=== PATIENT | female | born 1975 | race Hispanic/Latino ===

== ENCOUNTER 2016-09-03 15:48 | Emergency (ER) | payer MEDICAID ==
[2016-09-03 15:48] VITALS: BMI 21.4
[2016-09-03 16:08] VITALS: TEMP 98.4; O2SAT 99
[2016-09-03 16:17] VITALS: RESP 18
--- NOTE | 2016-09-03 17:09 | ED PDOC ---
Arrival/HPI - General Chief Complaint: Abdominal Pain Time Seen by Provider: 09/03/16 16:00 Historian: Patient - History of Present Illness Narrative History of Present Illness (Text): 09/03/16 17:04 40yo female with history of anxiety present with complaint of abdominal pain and constipation x 3weeks. States she used different OTC supplement without relieve. she reports previous history of constipation, states she usually have BM after using supplements. Denies nausea, vomiting, fever, chills, any other complaint. she denies drug use, opiod dependence. Past Medical History - Provider Review Nursing Documentation Reviewed: Yes - Past History Past History: No Previous - Infectious Disease Hx of Infectious Diseases: None - Tetanus Immunization Tetanus Immunization: Unknown - Reproductive Menopause: No - Past Medical History Past Medical History: No Previous - Cardiac Hx Cardiac Disorders: No Hx Hypertension: No - Pulmonary Hx Tuberculosis: No - Neurological HX Cerebrovascular Accident: No Hx Seizures: No - HEENT Hx HEENT Disorder: No (WEARSR X GLASSES) - Renal Hx Renal Disorder: No - Endocrine/Metabolic Hx Endocrine Disorders: No - Hematological/Oncological Hx Cancer: No - Integumentary Hx Dermatological Disorder: No - Musculoskeletal/Rheumatological Hx Musculoskeletal Disorders: No Hx Falls: No - Gastrointestinal Hx Gastrointestinal Disorders: Yes (CONSTIPATION,CHOLELITHIASIS,BILIARY COLIC) - Genitourinary/Gynecological Hx Sexually Transmitted Diseases: No - Psychiatric Hx Anxiety: Yes Hx Depression: No Hx Emotional Abuse: No Hx Physical Abuse: No Hx Substance Use: No - Past Surgical History Past Surgical History: No Previous - Surgical History Hx Cholecystectomy: Yes (september) Other/Comment: D&C x3 , demise - Anesthesia Hx Anesthesia Reactions: No Hx Malignant Hyperthermia: No - Suicidal Assessment Feels Threatened In Home Enviroment: No Family/Social History - Physician Review Nursing Documentation Reviewed: Yes Family/Social History: Unknown Family HX Smoking Status: Current Some Days Smoker Hx Alcohol Use: Yes (OCCASIONALLY) Hx Substance Use: No Hx Substance Use Treatment: No Allergies/Home Meds Allergies/Adverse Reactions: Allergies Iodine and Iodide Containing Produc Allergy (Verified 09/03/16 16:08) RASH Home Medications: Home Meds Medication Instructions Recorded Confirmed ALPRAZolam [Xanax] 1 mg PO QID 09/03/16 09/03/16 Review of Systems - Physician Review All systems were reviewed & negative as marked: Yes - Review of Systems Constitutional: Normal Eyes: Normal ENT: Normal Respiratory: Normal Cardiovascular: Normal Gastrointestinal: Abdominal Pain, Constipation. absent: Diarrhea, Nausea, Vomiting, Hematochezia, Hematemesis Genitourinary Female: Normal Musculoskeletal: Normal Skin: Normal Neurological: Normal Endocrine: Normal Hemo/Lymphatic: Normal Psychiatric: Normal Physical Exam Vital Signs Reviewed: Yes Vital Signs Temp Pulse Resp BP Pulse Ox 09/03/16 17:59 76 18 108/69 99 09/03/16 16:16 98.4 F 80 18 110/72 99 09/03/16 15:58 98.4 F 80 20 110/72 99 Temperature: Afebrile Blood Pressure: Normal Pulse: Regular Respiratory Rate: Normal Appearance: Positive for: Well-Appearing, Non-Toxic, Comfortable Pain Distress: None Mental Status: Positive for: Alert and Oriented X 3 - Systems Exam Head: Present: Atraumatic, Normocephalic Pupils: Present: PERRL Extroacular Muscles: Present: EOMI Conjunctiva: Present: Normal Mouth: Present: Moist Mucous Membranes Neck: Present: Normal Range of Motion Respiratory/Chest: Present: Clear to Auscultation, Good Air Exchange. No: Respiratory Distress, Accessory Muscle Use Cardiovascular: Present: Regular Rate and Rhythm, Normal S1, S2. No: Murmurs Abdomen: Present: Distention (Mildly distended), Normal Bowel Sounds. No: Tenderness, Peritoneal Signs, Rebound, Guarding, McBurney's Point Tender, Rovsing's Sign Present, Hernias Back: Present: Normal Inspection Upper Extremity: Present: Normal Inspection. No: Cyanosis, Edema Lower Extremity: Present: Normal Inspection. No: Edema Neurological: Present: GCS=15, CN II-XII Intact, Speech Normal Skin: Present: Warm, Dry, Normal Color. No: Rashes Psychiatric: Present: Alert, Oriented x 3, Normal Insight, Normal Concentration Medical Decision Making ED Course and Treatment: 09/03/16 19:08 Pt presented in ED for abdominal pain /constipation. Her exam was benign. she had abdominal pain, although mild distention was noted . abdomen was sot. Obstructive series - No obstruction. Fecal retention noted. Pt used the fleet enema that was given in ED. On re evaluation she states she was able to move her bowel s/p and feels much better. She was DC home with a rx of Miralax. Advised to increase her fiber intake. referred to her PMD. - RAD Interpretation Radiology Orders: 09/03/16 16:39 obstructive series [ABD 2 VIEWS (FLAT/UP OR DECUB)] [RAD] Stat - Medication Orders Current Medication Orders: Discontinued Medications Acetaminophen (Tylenol 325mg Tab) 650 mg PO STAT STA Stop: 09/03/16 18:19 Last Admin: 09/03/16 18:24 Dose: 650 MG MAR Pain/Vitals Document 09/03/16 18:24 RR (Rec: 09/03/16 18:25 RR [id number]) Pain Reassessment Is This A Pain ReAssessment? Yes Sleep Is patient sleeping during reassessment? No Presence of Pain Presence of Pain Yes Location Pain Location Body Site Abdomen Sodium Phosphate (Fleet Enema) 135 ml RC STAT STA Stop: 09/03/16 18:03 Last Admin: 09/03/16 18:19 Dose: 135 ML Disposition/Present on Arrival - Present on Arrival Any Indicators Present on Arrival: No History of DVT/PE: No History of Uncontrolled Diabetes: No Urinary Catheter: No History of Decub. Ulcer: No History Surgical Site Infection Following: None - Disposition Have Diagnosis and Disposition been Completed?: Yes Diagnosis: Constipation Disposition: HOME/ ROUTINE Disposition Time: 19:00 Patient Plan: Discharge Patient Problems: Current Active Problems Problem Status Diagnosed Constipation Acute Condition: STABLE Discharge Instructions (ExitCare): Constipation (ED) Additional Instructions: Increase fiber intake Follow up with your doctor Return to ED for any new or worsening symptoms Prescriptions: Polyethylene Glycol 3350 [Miralax] 17 % PO BID #100 ml Referrals: Dylan Fox MD [Primary Care Provider] - Follow up with primary
[2016-09-03 18:00] VITALS: BP 108/69; PULSE 76
--- NOTE | 2016-09-04 10:49 | RAD ---
HISTORY: constipation COMPARISON: No prior. FINDINGS: BOWEL: Normal. No obstruction. No free air. There is moderate to severe constipation BONES: Normal. OTHER FINDINGS: None. IMPRESSION: Moderate to severe constipation
== END 2016-09-03 19:10 | disposition home or self-care (01) ==
LOC: ED 15:48
DX: K59.00 Constipation, unspecified (principal)

== ENCOUNTER 2016-09-21 11:41 | Emergency (ER) | payer MEDICAID ==
[2016-09-21 12:01] VITALS: BMI 20.8
[2016-09-21 12:02] VITALS: TEMP 97.8; O2SAT 99
[2016-09-21] MEDS ORDERED: Pantoprazole 40 MG in Sodium Chloride 0.9% 100 ML IV STA (12:33)
[2016-09-21] MEDS ORDERED: Sodium Chloride 0.9% 500 ML IV ONE (12:34)
--- NOTE | 2016-09-21 12:37 | ED PDOC ---
Arrival/HPI - General Chief Complaint: Abdominal Pain Time Seen by Provider: 09/21/16 12:01 Historian: Patient - History of Present Illness Narrative History of Present Illness (Text): 09/21/16 12:34 A 40 year old female, whose past medical history includes cholecystectomy, presents to the emergency department complaining of epigastric abdominal pain for the past year. Patient reports her pain worsened over this pas month which caused her to come in for further evaluation. Patient denies any radiating pain , fever, chills, nausea, vomiting, diarrhea, urinary symptoms, back pain, chest pain, shortness of breath or any other complaints. Patient reports her last menstrual cycle was 2 years ago. PMD: None Time/Duration: Other (1 year) Symptom Course: Worsening (over past month) Quality: Other Context: Home Associated Symptoms (Text): 09/21/16 13:24 Patient has had epigastric abdominal pain for greater than 1 year. She's been seen by the PMD and directed to the tipple worker. She states that the pain is become worse over the last month or so. No nausea vomiting or diarrhea. No genitourinary symptoms. No radiation. She does not appear ill. She had a cholecystectomy 2 years ago. Past Medical History - Provider Review Nursing Documentation Reviewed: Yes - Past History Past History: No Previous - Infectious Disease Hx of Infectious Diseases: None - Tetanus Immunization Tetanus Immunization: Unknown - Past Medical History Past Medical History: No Previous - Cardiac Hx Cardiac Disorders: No Hx Hypertension: No - Pulmonary Hx Respiratory Disorders: No Hx Tuberculosis: No - Neurological HX Cerebrovascular Accident: No Hx Seizures: No - HEENT Hx HEENT Disorder: No (WEARSR X GLASSES) - Renal Hx Renal Disorder: No - Endocrine/Metabolic Hx Endocrine Disorders: No - Hematological/Oncological Hx Blood Disorders: No Hx Cancer: No - Integumentary Hx Dermatological Disorder: No - Musculoskeletal/Rheumatological Hx Musculoskeletal Disorders: No Hx Falls: No - Gastrointestinal Hx Gastrointestinal Disorders: Yes (CONSTIPATION,CHOLELITHIASIS,BILIARY COLIC) Hx Irritable Bowel: Yes - Genitourinary/Gynecological Hx Genitourinary Disorders: No Hx Sexually Transmitted Diseases: No - Psychiatric Hx Psychophysiologic Disorder: Yes Hx Anxiety: Yes Hx Depression: No Hx Emotional Abuse: No Hx Physical Abuse: No Hx Substance Use: No - Past Surgical History Past Surgical History: No Previous - Surgical History Hx Cholecystectomy: Yes (september) Other/Comment: D&C x3 , demise - Anesthesia Hx Anesthesia Reactions: No Hx Malignant Hyperthermia: No - Suicidal Assessment Feels Threatened In Home Enviroment: No Family/Social History - Physician Review Nursing Documentation Reviewed: Yes Family/Social History: No Known Family HX Smoking Status: Light Smoker < 10 Cigarettes Daily Hx Alcohol Use: Yes (OCCASIONALLY) Hx Substance Use: No Hx Substance Use Treatment: No Allergies/Home Meds Allergies/Adverse Reactions: Allergies Iodine and Iodide Containing Produc Allergy (Verified 09/21/16 12:01) RASH shellfish derived Allergy (Verified 09/21/16 12:02) ANAPHYLAXIS Home Medications: Home Meds Medication Instructions Recorded Confirmed ALPRAZolam [Xanax] 1 mg PO QID 09/03/16 09/21/16 Review of Systems - Physician Review All systems were reviewed & negative as marked: Yes - Review of Systems Constitutional: absent: Fevers, Night Sweats Respiratory: absent: SOB Cardiovascular: absent: Chest Pain Gastrointestinal: Abdominal Pain (Epigastric abdominal pain). absent: Diarrhea , Nausea, Vomiting Genitourinary Female: absent: Dysuria, Frequency, Hematuria, Urine Output Changes Musculoskeletal: absent: Back Pain Physical Exam Vital Signs Reviewed: Yes Vital Signs Temp Pulse Resp BP Pulse Ox 09/21/16 14:22 79 18 107/71 99 09/21/16 13:48 86 18 105/75 99 09/21/16 12:02 97.8 F 91 H 16 103/72 99 Temperature: Afebrile Blood Pressure: Normal Pulse: Regular Respiratory Rate: Normal Appearance: Positive for: Well-Appearing, Non-Toxic, Comfortable Pain Distress: None Mental Status: Positive for: Alert and Oriented X 3 - Systems Exam Head: Present: Atraumatic, Normocephalic Pupils: Present: PERRL Extroacular Muscles: Present: EOMI Conjunctiva: Present: Normal Mouth: Present: Moist Mucous Membranes Pharnyx: No: ERYTHEMA, EXUDATE, TONSILS ENLARGED Neck: Present: Normal Range of Motion. No: MIDLINE TENDERNESS, Paraspinal Tenderness Respiratory/Chest: Present: Clear to Auscultation, Good Air Exchange. No: Respiratory Distress, Accessory Muscle Use Cardiovascular: Present: Regular Rate and Rhythm, Normal S1, S2. No: Murmurs Abdomen: Present: Tenderness (Moderate epigastric tenderness to palpation), Normal Bowel Sounds. No: Distention, Peritoneal Signs, Rebound, Guarding Back: Present: Normal Inspection. No: CVA Tenderness Upper Extremity: Present: Normal Inspection. No: Cyanosis, Edema Lower Extremity: Present: Normal Inspection. No: Edema Neurological: Present: GCS=15, CN II-XII Intact, Speech Normal, Motor Func Grossly Intact Skin: Present: Warm, Dry, Normal Color. No: Rashes Psychiatric: Present: Alert, Oriented x 3, Normal Insight, Normal Concentration Medical Decision Making ED Course and Treatment: 09/21/16 12:34 Impression: A 40 year old female with epigastric abdominal pain for 1 year. Patient denies any fever, nausea, vomiting or diarrhea. Plan: -- Abdomen and pelvis CT -- EKG -- Labs -- Urinalysis -- Protonix, IV fluids and Toradol -- Reassess and disposition Prior Visits: Notes and results from previous visits were reviewed. Patient last seen in the ED on 09/03/16 for abdominal pain and constipation. Progress Notes: Report Date : 09/21/2016 14:08:49 PROCEDURE: CT Abdomen and Pelvis without intravenous contrast Dictator : Jose De Jesus Scott MD IMPRESSION: Status post cholecystectomy. Otherwise unremarkable examination. 09/21/16 15:59 EKG shows normal sinus rhythm rate approximately [address] or T-wave changes - Lab Interpretations Lab Results: 09/21/16 12:45 09/21/16 12:45 Lab Results 09/21/16 12:45: WBC 8.1, RBC 4.53, Hgb 14.0, Hct 41.2, MCV 90.9, MCH 30.9, MCHC 34.0, RDW 13.9, Plt Count 276, MPV 10.6, Gran % 68.5 H, Lymph % (Auto) 25.9, Donley % (Auto) 4.5, Eos % (Auto) 0.6 L, Baso % (Auto) 0.5, Gran # 5.53, Lymph # 2.1, Donley # 0.4, Eos # 0.1, Baso # 0.04, PT 10.8, INR 1.00, APTT 28.2, Sodium 138, Potassium 3.7, Chloride 103, Carbon Dioxide 27, Anion Gap 12, BUN 12, Creatinine 0.7, Est GFR ( Amer) > 60, Est GFR (Non-Af Amer) > 60, Random Glucose 97, Calcium 9.5, Total Bilirubin 0.4, AST 19, ALT 25, Alkaline Phosphatase 69, Lactate Dehydrogenase 383, Total Creatine Kinase 53, Troponin I < 0.01, Total Protein 7.1, Albumin 4.2, Globulin 2.9, Albumin/Globulin Ratio 1.4 , Amylase 59, Lipase 59, Urine Color Yellow, Urine Appearance Clear, Urine pH 6.0, Ur Specific Corbett <= 1.005, Urine Protein Negative, Urine Glucose (UA) Negative, Urine Ketones Negative, Urine Blood Negative, Urine Nitrate Negative, Urine Bilirubin Negative, Urine Urobilinogen 0.2, Ur Leukocyte Esterase Negative , Urine Opiates Screen Negative, Urine Methadone Screen Negative, Ur Barbiturates Screen Negative, Ur Phencyclidine Scrn Negative, Ur Amphetamines Screen Negative, U Benzodiazepines Scrn Positive H, U Oth Cocaine Metabols Negative, U Cannabinoids Screen Negative, Alcohol, Quantitative < 10 I have reviewed the lab results: Yes - RAD Interpretation Radiology Orders: 09/21/16 12:33 ABD & PELVIS W/O PO OR IV CONT [CT] Stat CT scan of the abdomen and pelvis as read by the radiologist shows no acute findings 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 - Medication Orders Current Medication Orders: Discontinued Medications Sodium Chloride (Sodium Chloride 0.9%) 500 mls @ 500 mls/hr IV ONCE ONE Stop: 09/21/16 13:33 Last Admin: 09/21/16 13:01 Dose: 500 MLS/HR eMAR Start Stop Document 09/21/16 13:01 EQ (Rec: 09/21/16 13:01 EQ [email or web address] Intravenous Solution Start Date 09/21/16 Start Time 13:01 Pantoprazole Sodium 40 mg/ (Sodium Chloride) 100 mls @ 400 mls/hr IV STAT STA Stop: 09/21/16 12:47 Last Admin: 09/21/16 13:01 Dose: 400 MLS/HR eMAR Start Stop Document 09/21/16 13:01 EQ (Rec: 09/21/16 13:01 EQ [email or web address]) Intravenous Solution Start Date 09/21/16 Start Time 13:01 Ketorolac Tromethamine (Toradol) 15 mg IVP STAT STA Stop: 09/21/16 12:34 Last Admin: 09/21/16 13:01 Dose: 15 MG IVP Administration Document 09/21/16 13:01 EQ (Rec: 09/21/16 13:01 EQ [email or web address] Charges for Administration # of IVP Administrations 1 Pantoprazole Sodium (Protonix Inj) Confirm Administered Dose 40 mg .ROUTE .STK- MED ONE Stop: 09/21/16 12:47 Last Admin: 09/21/16 13:02 Dose: - Scribe Statement The provider has reviewed the documentation as recorded by the Scribe Lizy Yao Provider Scribe Attestation: All medical record entries made by the Scribe were at my direction and personally dictated by me. I have reviewed the chart and agree that the record accurately reflects my personal performance of the history, physical exam, medical decision making, and the department course for this patient. I have also personally directed, reviewed, and agree with the discharge instructions and disposition. Disposition/Present on Arrival - Present on Arrival Any Indicators Present on Arrival: No History of DVT/PE: No History of Uncontrolled Diabetes: No Urinary Catheter: No History of Decub. Ulcer: No History Surgical Site Infection Following: None - Disposition Have Diagnosis and Disposition been Completed?: Yes Diagnosis: Epigastric abdominal pain Disposition: HOME/ ROUTINE Disposition Time: 14:13 Patient Plan: Discharge Condition: GOOD Discharge Instructions (ExitCare): Abdominal Pain (ED) Prescriptions: Pantoprazole Sodium [Protonix] 40 mg PO DAILY #20 ect Referrals: PCP,NO [Primary Care Provider] - Follow up with primary Dylan Fox MD [Staff Provider] - Follow up with primary
[2016-09-21 12:49] LABS: URINE BILIRUBIN NEGATIVE (NEGATIVE); URINE BLOOD NEGATIVE (NEGATIVE); URINE GLUCOSE (UA) NEGATIVE (NEGATIVE); URINE KETONE NEGATIVE (NEGATIVE); URINE LEUKOCYTE ESTERASE NEGATIVE Leu/uL (NEGATIVE); URINE PROTEIN NEGATIVE mg/dL (<30 mg/dL); URINE UROBILINOGEN 0.2 E.U./dL (<1 E.U./dL)
[2016-09-21 12:50] LABS: URINE APPEARANCE CLEAR (CLEAR); URINE COLOR YELLOW (YELLOW)
[2016-09-21 13:05] LABS: ADD MANUAL DIFF? NO
[2016-09-21 13:13] LABS: BASO # 0.04 K/mm3 (0.0-2.0); BASO % 0.5 % (0.0-3.0); EOS # 0.1 (0.0-0.7); EOS % 0.6 % (1.5-5.0); GRAN # 5.53 (1.4-6.5); GRAN % 68.5 % (50.0-68.0); HEMATOCRIT 41.2 % (36.0-48.0); LYMPH # 2.1 (1.2-3.4); LYMPH % 25.9 % (22.0-35.0); MEAN CELL VOLUME 90.9 fL (80.0-105.0); MEAN CORPUSCULAR HEMOGLOBIN 30.9 pg (25.0-35.0); MEAN PLATELET VOLUME 10.6 fl (7.0-11.0); MONO # 0.4 (0.1-0.6); MONO % 4.5 % (1.0-6.0); PLATELET COUNT 276 10^3/uL (120.0-450.0); RED CELL DISTRIBUTION WIDTH 13.9 % (11.5-14.5); WHITE BLOOD COUNT 8.1 10^3/ul (4.5-11.0)
[2016-09-21 13:19] LABS: PARTIAL THROMBOPLASTIN TIME 28.2 Seconds (23.7-30.8)
[2016-09-21 13:20] LABS: ALB/GLOB RATIO 1.4 (1.1-1.8); ALKALINE PHOSPHATASE 69 U/L (38-133); ALT/SGPT 25 U/L (7-56); AMYLASE 59 U/L (35-125); AST/SGOT 19 U/L (15-39); BILIRUBIN,TOTAL 0.4 mg/dL (0.2-1.3); BLOOD UREA NITROGEN 12 mg/dL (7-21); CALCIUM 9.5 mg/dL (8.4-10.5); CARBON DIOXIDE 27 mmol/L (21-33); CHLORIDE 103 mmol/L (95-110); GFR AFRICAN-AMERICAN > 60; GLUCOSE,RANDOM 97 mg/dL (70-110); LIPASE 59 U/L (23-300); POTASSIUM 3.7 mmol/L (3.6-5.0); SODIUM 138 mmol/L (132-148); TOTAL PROTEIN 7.1 g/dL (5.8-8.3)
[2016-09-21 13:48] VITALS: RESP 18
[2016-09-21 13:51] LABS: TROPONIN I < 0.01 ng/mL
--- NOTE | 2016-09-21 14:10 | CT ---
PROCEDURE: CT Abdomen and Pelvis without intravenous contrast HISTORY: epigastric pain COMPARISON: None. TECHNIQUE: Without contrast.. Contrast Dose: 0 Radiation dose: Total exam DLP = 331.05 mGy-cm. This CT exam was performed using one or more of the following dose reduction techniques: Automated exposure control, adjustment of the mA and/or kV according to patient size, and/or use of iterative reconstruction technique. FINDINGS: LOWER THORAX: Unremarkable. LIVER: Unremarkable. No gross lesion or ductal dilatation. GALLBLADDER AND BILE DUCTS: Status post cholecystectomy PANCREAS: Unremarkable. No gross lesion or ductal dilatation. SPLEEN: Unremarkable. ADRENALS: Unremarkable. No mass. KIDNEYS AND URETERS: Unremarkable. No hydronephrosis. No solid mass. No renal calculus. VASCULATURE: Unremarkable. No aortic aneurysm. BOWEL: Unremarkable. No obstruction. No gross mural thickening. No significant retained feces. APPENDIX: Unremarkable. Normal appendix. PERITONEUM: Unremarkable. No free fluid. No free air. LYMPH NODES: Unremarkable. No enlarged lymph nodes. BLADDER: Unremarkable. REPRODUCTIVE: Normal uterus BONES: No acute fracture. OTHER FINDINGS: None. IMPRESSION: Status post cholecystectomy. Otherwise unremarkable examination.
[2016-09-21 14:24] VITALS: BP 107/71; PULSE 79
--- NOTE | 2016-09-22 11:25 | CARD ---
APPROVED REPORT EKG Measurement Heart [id number] <Conclusion> Normal sinus rhythm Normal ECG
== END 2016-09-21 15:00 | disposition home or self-care (01) ==
LOC: ED 11:41
DX: R10.13 Epigastric pain (principal); Z90.49 Acquired absence of other specified parts of digestive tract
CPT/HCPCS: 74176; 80053; 80320; 80324; 80345; 80346; 80349; 80353; 80358; 80361; 81003; 82150; 82550; 83615; 83690; 83992; 84484; 85025; 85610; 85730; 93005; 96374; 99283; C9113; J1885; J7040

== ENCOUNTER 2016-12-30 00:04 | Emergency (ER) | payer MEDICAID ==
[2016-12-30 01:19] VITALS: BMI 19.7
--- NOTE | 2016-12-30 01:38 | ED PDOC ---
Arrival/HPI - General Time Seen by Provider: 12/30/16 00:35 Historian: Patient, EMS - History of Present Illness Narrative History of Present Illness (Text): 12/30/16 00:35 Fiona Gan is a 41 year old female who presents to the emergency department via ambulance for evaluation suicidal ideation. Patient got into an argument with her family members who called the police. Patient told the police that she was "done" (referring to her kids). Currently in the emergency department, she denies any suicidal or homicidal ideation. Patient's ex- is at bedside also endorses her history. Admits to drinking alcohol earlier today. Denies any somatic complaints. Time/Duration: Prior to Arrival Severity Level: Mild Activities at Onset: Light Context: Home Past Medical History - Provider Review Nursing Documentation Reviewed: Yes - Past History Past History: No Previous - Infectious Disease Hx of Infectious Diseases: None - Tetanus Immunization Tetanus Immunization: Unknown - Past Medical History Past Medical History: No Previous - Cardiac Hx Cardiac Disorders: No Hx Hypertension: No - Pulmonary Hx Respiratory Disorders: No Hx Tuberculosis: No - Neurological HX Cerebrovascular Accident: No Hx Seizures: No - HEENT Hx HEENT Disorder: No (WEARSR X GLASSES) - Renal Hx Renal Disorder: No - Endocrine/Metabolic Hx Endocrine Disorders: No - Hematological/Oncological Hx Blood Disorders: No Hx Cancer: No - Integumentary Hx Dermatological Disorder: No - Musculoskeletal/Rheumatological Hx Musculoskeletal Disorders: No Hx Falls: No - Gastrointestinal Hx Gastrointestinal Disorders: Yes (CONSTIPATION,CHOLELITHIASIS,BILIARY COLIC) Hx Irritable Bowel: Yes - Genitourinary/Gynecological Hx Genitourinary Disorders: No Hx Sexually Transmitted Diseases: No - Psychiatric Hx Psychophysiologic Disorder: Yes Hx Anxiety: Yes Hx Depression: No Hx Emotional Abuse: No Hx Physical Abuse: No Hx Substance Use: No - Past Surgical History Past Surgical History: No Previous - Surgical History Hx Cholecystectomy: Yes (may) Other/Comment: D&C x3 , demise - Anesthesia Hx Anesthesia Reactions: No Hx Malignant Hyperthermia: No - Suicidal Assessment Feels Threatened In Home Enviroment: No Family/Social History - Physician Review Nursing Documentation Reviewed: Yes Family/Social History: No Known Family HX Smoking Status: Light Smoker < 10 Cigarettes Daily Hx Alcohol Use: Yes (OCCASIONALLY) Hx Substance Use: No Hx Substance Use Treatment: No Allergies/Home Meds Allergies/Adverse Reactions: Allergies Iodine and Iodide Containing Produc Allergy (Verified 12/30/16 00:53) RASH shellfish derived Allergy (Verified 12/30/16 00:53) ANAPHYLAXIS Home Medications: Home Meds Medication Instructions Recorded Confirmed ALPRAZolam [Xanax] 1 mg PO QID 09/03/16 12/30/16 Review of Systems - Physician Review All systems were reviewed & negative as marked: Yes - Review of Systems Constitutional: Normal. absent: Fatigue, Fevers Respiratory: Normal. absent: SOB, Cough, Sputum Gastrointestinal: Normal. absent: Abdominal Pain, Diarrhea, Nausea, Vomiting Genitourinary Female: Normal Psychiatric: absent: Suicidal Ideation Physical Exam Vital Signs Reviewed: Yes Vital Signs Temp Pulse Resp BP Pulse Ox 12/30/16 01:00 97.8 F 79 16 132/84 99 Temperature: Afebrile Blood Pressure: Normal Pulse: Regular Respiratory Rate: Normal Appearance: Positive for: Well-Appearing, Non-Toxic, Comfortable Pain Distress: None Mental Status: Positive for: Alert and Oriented X 3 - Systems Exam Head: Present: Atraumatic, Normocephalic Pupils: Present: PERRL Conjunctiva: Present: Normal Mouth: Present: Moist Mucous Membranes Respiratory/Chest: Present: Clear to Auscultation, Good Air Exchange. No: Respiratory Distress, Accessory Muscle Use Cardiovascular: Present: Regular Rate and Rhythm, Normal S1, S2. No: Murmurs Abdomen: Present: Normal Bowel Sounds. No: Tenderness, Distention, Peritoneal Signs Lower Extremity: Present: Normal Inspection. No: Edema Neurological: Present: GCS=15, CN II-XII Intact, Speech Normal, Motor Func Grossly Intact, Normal Sensory Function Skin: Present: Warm, Dry, Normal Color. No: Rashes Psychiatric: Present: Alert, Oriented x 3, Intoxicated. No: Suicidal Ideation, Homicidal Ideation Medical Decision Making ED Course and Treatment: 12/30/16 00:35 Impression: A 41 year old female who presents to the emergency department for evaluation of suicidal ideation. Plan: -- Labs -- Alcohol level -- Drug Screen -- HCG -- Urinalysis -- Reassess and disposition Progress Notes: 12/30/16 02:53 Patient was evaluated by PES worker and recommends that patient is psychiatrically clear for discharge. Patient's ex- bedside will take the her home. Will discharge patient home. - Lab Interpretations I have reviewed the lab results: Yes - Scribe Statement The provider has reviewed the documentation as recorded by the Scribe Jaylin Capellan Provider Attestation: Provider Scribe Attestation: All medical record entries made by the Scribe were at my direction and personally dictated by me. I have reviewed the chart and agree that the record accurately reflects my personal performance of the history, physical exam, medical decision making, and the department course for this patient. I have also personally directed, reviewed, and agree with the discharge instructions and disposition. Disposition/Present on Arrival - Present on Arrival Any Indicators Present on Arrival: No History of DVT/PE: No History of Uncontrolled Diabetes: No Urinary Catheter: No History Surgical Site Infection Following: None - Disposition Have Diagnosis and Disposition been Completed?: Yes Diagnosis: Alcohol intoxication Disposition: HOME/ ROUTINE Disposition Time: 02:55 Condition: GOOD Forms: [facility] (German)
[2016-12-30 03:00] VITALS: BP 132/84; PULSE 79; RESP 16; TEMP 97.8; O2SAT 99
== END 2016-12-30 02:53 | disposition home or self-care (01) ==
LOC: ED 00:04
DX: F10.129 Alcohol abuse with intoxication, unspecified (principal); F41.9 Anxiety disorder, unspecified

== ENCOUNTER 2017-03-12 15:58 | Emergency (ER) | payer MEDICAID ==
[2017-03-12 16:13] VITALS: BMI 20.3
--- NOTE | 2017-03-12 16:23 | ED PDOC ---
Arrival/HPI - General Chief Complaint: Shortness Of Breath Time Seen by Provider: 03/12/17 15:59 - History of Present Illness Narrative History of Present Illness (Text): 03/12/17 16:20 41 yo female, hx of anxiety, presents with rigth sided cp, coughing. as per pt, has had symptoms for last few days, saw urgent care and another facility given antibiotics. pt denies direct trauma. states cough with green sputum and sore throat. no fevers, n/v/d, urinary changes. Past Medical History - Provider Review Nursing Documentation Reviewed: Yes - Past History Past History: No Previous - Infectious Disease Hx of Infectious Diseases: None - Tetanus Immunization Tetanus Immunization: Unknown - Past Medical History Past Medical History: No Previous - Cardiac Hx Cardiac Disorders: No Hx Hypertension: No - Pulmonary Hx Respiratory Disorders: No Hx Tuberculosis: No - Neurological HX Cerebrovascular Accident: No Hx Seizures: No - HEENT Hx HEENT Disorder: No (WEARSR X GLASSES) - Renal Hx Renal Disorder: No - Endocrine/Metabolic Hx Endocrine Disorders: No - Hematological/Oncological Hx Blood Disorders: No Hx Cancer: No - Integumentary Hx Dermatological Disorder: No - Musculoskeletal/Rheumatological Hx Musculoskeletal Disorders: No Hx Falls: No - Gastrointestinal Hx Gastrointestinal Disorders: Yes (CONSTIPATION,CHOLELITHIASIS,BILIARY COLIC) Hx Irritable Bowel: Yes - Genitourinary/Gynecological Hx Genitourinary Disorders: No Hx Sexually Transmitted Diseases: No - Psychiatric Hx Psychophysiologic Disorder: Yes Hx Anxiety: Yes Hx Depression: No Hx Emotional Abuse: No Hx Physical Abuse: No Hx Substance Use: No - Past Surgical History Past Surgical History: No Previous - Surgical History Hx Cholecystectomy: Yes (september) Hx Dilation and Curettage: Yes Other/Comment: D&C x3 , demise - Anesthesia Hx Anesthesia: Yes Hx Anesthesia Reactions: No Hx Malignant Hyperthermia: No - Suicidal Assessment Feels Threatened In Home Enviroment: No Family/Social History - Physician Review Nursing Documentation Reviewed: Yes Family/Social History: Unknown Family HX Smoking Status: Heavy Smoker > 10 Cigarettes Daily Hx Alcohol Use: Yes (OCCASIONALLY) Frequency of alcohol use: Socially Hx Substance Use: No Hx Substance Use Treatment: No Allergies/Home Meds Allergies/Adverse Reactions: Allergies Iodine and Iodide Containing Produc Allergy (Verified 12/30/16 00:53) RASH shellfish derived Allergy (Verified 12/30/16 00:53) ANAPHYLAXIS Home Medications: Home Meds Medication Instructions Recorded Confirmed ALPRAZolam [Xanax] 2 mg PO TID PRN 09/03/16 03/12/17 Review of Systems - Review of Systems Constitutional: Normal Eyes: Normal ENT: Normal Respiratory: Cough Cardiovascular: Chest Pain Gastrointestinal: Normal Genitourinary Female: Normal Musculoskeletal: Normal Skin: Normal Neurological: Normal Endocrine: Normal Hemo/Lymphatic: Normal Psychiatric: Normal Physical Exam Vital Signs Temp Pulse Resp BP Pulse Ox 03/12/17 15:59 98.6 F 80 18 117/73 76 L Temperature: Afebrile Blood Pressure: Normal Pulse: Regular Respiratory Rate: Normal Appearance: Positive for: Well-Appearing, Non-Toxic, Comfortable Pain Distress: None Mental Status: Positive for: Alert and Oriented X 3 - Systems Exam Head: Present: Atraumatic, Normocephalic Pupils: Present: PERRL Extroacular Muscles: Present: EOMI Conjunctiva: Present: Normal Mouth: Present: Moist Mucous Membranes Neck: Present: Normal Range of Motion Respiratory/Chest: Present: Clear to Auscultation, Good Air Exchange, Other ( right sided chest wal ttp). No: Respiratory Distress, Accessory Muscle Use Cardiovascular: Present: Regular Rate and Rhythm, Normal S1, S2. No: Murmurs Abdomen: Present: Normal Bowel Sounds. No: Tenderness, Distention, Peritoneal Signs, Rebound, Guarding, Feeding Tubes Back: Present: Normal Inspection Upper Extremity: Present: Normal Inspection. No: Cyanosis, Edema Lower Extremity: Present: Normal Inspection. No: Edema Neurological: Present: GCS=15, CN II-XII Intact, Speech Normal Skin: Present: Warm, Dry, Normal Color. No: Rashes Psychiatric: Present: Alert, Oriented x 3, Normal Insight, Normal Concentration Medical Decision Making ED Course and Treatment: 03/12/17 16:22 perc neg, nsr [address] t wave changes normal intervals. 03/13/17 14:42 lungs clear, imaging neg as read by me. pt speaking full sentences atypical tiffanie nabd soft no ttp. advise outpt fu and return precautions 03/13/17 14:42 o2 sat incorrectly documented as 76% pt satting 99% - Lab Interpretations Microbiology Results: Microbiology Results 03/12/17 16:45 Throat Group A Strep Throat Culture - Final NO BETA STREP GROUP A ISOLATED. Lab Results: 03/12/17 16:45 03/12/17 16:45 Lab Results 03/12/17 16:45: Influenza Typ A,B (EIA) Negative for flu a/b, Grp A Beta Strep Ag Negative 03/12/17 16:45: Sodium 141, Potassium 4.5, Chloride 105, Carbon Dioxide 28, Anion Gap 13, BUN 14, Creatinine 0.6 L, Est GFR ( Amer) > 60, Est GFR ( Non-Af Amer) > 60, Random Glucose 100, Calcium 9.4, Magnesium 2.1, Total Bilirubin 0.3, AST 31, ALT 39, Alkaline Phosphatase 64, Lactate Dehydrogenase 555, Total Creatine Kinase 90, Troponin I < 0.01, Total Protein 6.8, Albumin 4.3 , Globulin 2.4, Albumin/Globulin Ratio 1.8, Lipase 81 03/12/17 16:45: PT 10.8, INR 1.00, APTT 28.8 03/12/17 16:45: WBC 10.4 D, RBC 4.46, Hgb 13.8, Hct 41.0, MCV 91.9, MCH 30.9, MCHC 33.7, RDW 13.9, Plt Count 302, MPV 10.3, Gran % 63.3, Lymph % (Auto) 30.1, [place] % (Auto) 4.7, Eos % (Auto) 1.3 L, Baso % (Auto) 0.6, Gran # 6.57 H, Lymph # 3.1, [place] # 0.5, Eos # 0.1, Baso # 0.06 03/12/17 16:25: Urine Color Yellow, Urine Appearance Clear, Urine pH 8.5, Ur Specific [place] 1.015, Urine Protein Trace H, Urine Glucose (UA) Negative, Urine Ketones Negative, Urine Blood Negative, Urine Nitrate Negative, Urine Bilirubin Negative, Urine Urobilinogen 1.0 H, Ur Leukocyte Esterase Negative, Urine RBC 0 - 2, Urine WBC 0 - 2, Ur Epithelial Cells 3 - 4, Urine HCG, Qual Negative - RAD Interpretation Radiology Orders: 03/12/17 16:19 RIBS RIGHT & PA CHEST [RAD] Stat 03/12/17 16:32 CXR [CHEST TWO VIEWS (PA/LAT)] [RAD] Stat - Medication Orders Current Medication Orders: Discontinued Medications Ketorolac Tromethamine (Toradol) 30 mg IVP STAT STA Stop: 03/12/17 16:19 Last Admin: 03/12/17 16:52 Dose: 30 mg MAR Pain Assessment Document 03/12/17 16:52 AD (Rec: 03/12/17 16:53 AD [facility] [id number] Pain Reassessment Is this a pain reassessment? No Presence of Pain Presence of Pain Yes Pain Scale Used Pain Scale Used Numeric Description Intensity of Pain at present 8 Pain Behavior Facial Grimacing IVP Administration Document 03/12/17 16:52 AD (Rec: 03/12/17 16:53 AD [facility] [id number] Charges for Administration # of IVP Administrations 1 Disposition/Present on Arrival - Present on Arrival Any Indicators Present on Arrival: No History of DVT/PE: No History of Uncontrolled Diabetes: No Urinary Catheter: No History of Decub. Ulcer: No History Surgical Site Infection Following: None - Disposition Have Diagnosis and Disposition been Completed?: Yes Diagnosis: Chest pain, Cough Disposition: HOME/ ROUTINE Disposition Time: 07:00 Condition: STABLE Discharge Instructions (ExitCare): Chest Pain (ED), Viral Syndrome (ED) Additional Instructions: please see your doctor/specialist. return to er with worsening symptoms or concerns. Prescriptions: Naproxen [Naprosyn] 500 mg PO BID PRN #14 tablet PRN Reason: Pain, Mild (1-3) Referrals: [facility] [Outside] - Follow up with primary [facility] [place] - Follow up with primary Haroon Bettencourt MD [Staff Provider] - Follow up with primary PCP,NO [Primary Care Provider] - Follow up with primary Forms: [employer] ([place])
[2017-03-12 16:38] LABS: PH,URINE 8.5 (4.7-8.0); URINE BILIRUBIN NEGATIVE (NEGATIVE); URINE BLOOD NEGATIVE (NEGATIVE); URINE GLUCOSE (UA) NEGATIVE (NEGATIVE); URINE KETONE NEGATIVE (NEGATIVE); URINE LEUKOCYTE ESTERASE NEGATIVE Leu/uL (NEGATIVE); URINE PROTEIN TRACE mg/dL (<30 mg/dL)
[2017-03-12 16:41] LABS: URINE APPEARANCE CLEAR (CLEAR); URINE COLOR YELLOW (YELLOW)
[2017-03-12 16:49] VITALS: BP 117/73; PULSE 80; RESP 18; TEMP 98.6; O2SAT 76
[2017-03-12 16:49] LABS: URINE WBC 0 - 2 /hpf (0-6)
[2017-03-12 16:50] LABS: URINE RBC 0 - 2 /hpf (0-2)
[2017-03-12 16:54] LABS: BASO # 0.06 K/mm3 (0.0-2.0); BASO % 0.6 % (0.0-3.0); EOS # 0.1 (0.0-0.7); EOS % 1.3 % (1.5-5.0); GRAN # 6.57 (1.4-6.5); GRAN % 63.3 % (50.0-68.0); LYMPH # 3.1 (1.2-3.4); LYMPH % 30.1 % (22.0-35.0); MEAN CELL VOLUME 91.9 fl (80.0-105.0); MEAN CORPUSCULAR HEMOGLOBIN 30.9 pg (25.0-35.0); MEAN CORPUSCULAR HGB CONC 33.7 g/dl (31.0-37.0); MEAN PLATELET VOLUME 10.3 fl (7.0-11.0); MONO # 0.5 (0.1-0.6); MONO % 4.7 % (1.0-6.0); RED CELL DISTRIBUTION WIDTH 13.9 % (11.5-14.5); WHITE BLOOD COUNT 10.4 10^3/ul (4.5-11.0)
[2017-03-12 17:06] LABS: ALB/GLOB RATIO 1.8 (1.1-1.8); ALKALINE PHOSPHATASE 64 U/L (38-126); ALT/SGPT 39 U/L (7-56); AST/SGOT 31 U/L (14-36); BILIRUBIN,TOTAL 0.3 mg/dL (0.2-1.3); BLOOD UREA NITROGEN 14 mg/dL (7-21); CALCIUM 9.4 mg/dL (8.4-10.5); CARBON DIOXIDE 28 mmol/L (21-33); CHLORIDE 105 mmol/L (98-107); GFR AFRICAN-AMERICAN > 60; GLUCOSE,RANDOM 100 mg/dL (70-110); LIPASE 81 U/L (23-300); MAGNESIUM 2.1 mg/dL (1.7-2.2); PARTIAL THROMBOPLASTIN TIME 28.8 Seconds (23.7-30.8); POTASSIUM 4.5 mmol/L (3.6-5.0); SODIUM 141 mmol/L (132-148); TOTAL PROTEIN 6.8 g/dL (5.8-8.3)
[2017-03-12 17:17] LABS: TROPONIN I < 0.01 ng/mL
--- NOTE | 2017-03-13 09:24 | RAD ---
HISTORY: cough COMPARISON: Correlation made with concurrent radiographs right ribs Comparison chest dated 04/10/2016 TECHNIQUE: Chest PA and lateral FINDINGS: LUNGS: No focal consolidation. The interstitial markings are slightly increased and coarsened with a few scattered peribronchial cuffing changes. Rule out sequela of reactive/ inflammatory airway disease or viral illness. . PLEURA: No significant pleural effusion identified. No pneumothorax apparent. CARDIOVASCULAR: Normal. OSSEOUS STRUCTURES: No significant abnormalities. VISUALIZED UPPER ABDOMEN: Metallic clips right upper quadrant of the abdomen consistent prior cholecystectomy OTHER FINDINGS: None. IMPRESSION: No focal consolidation. The interstitial markings are slightly increased and coarsened with a few scattered peribronchial cuffing changes. Rule out sequela of reactive/ inflammatory airway disease or viral illness
--- NOTE | 2017-03-13 09:26 | RAD ---
PROCEDURE: Radiographs of the Chest and Right Ribs. HISTORY: right sided cp COMPARISON: Concurrent chest radiograph TECHNIQUE: Frontal radiograph of the chest and multiple oblique radiographs of the right ribs were obtained. FINDINGS: RIGHT RIBS: No fracture or focal lesion visualized. LUNGS: No focal consolidation. The interstitial markings are slightly increased and coarsened with a few scattered peribronchial cuffing changes. Rule out sequela of reactive/ inflammatory airway disease or viral illness PLEURA: No pneumothorax or pleural fluid. CARDIOVASCULAR: Normal sized heart. No pulmonary vascular congestion. OTHER FINDINGS: None. Metallic clips right upper quadrant of the abdomen consistent with prior cholecystectomy IMPRESSION: No focal consolidation. The interstitial markings are slightly increased and coarsened with a few scattered peribronchial cuffing changes. Rule out sequela of reactive/ inflammatory airway disease or viral illness
--- NOTE | 2017-03-13 14:28 | CARD ---
APPROVED REPORT EKG Measurement Heart [id number] <Conclusion> Normal sinus rhythm Normal ECG
== END 2017-03-12 17:41 | disposition home or self-care (01) ==
LOC: ED 15:58
DX: R07.9 Chest pain, unspecified (principal); R05 Cough; F17.210 Nicotine dependence, cigarettes, uncomplicated
CPT/HCPCS: 71020; 71101; 80053; 81001; 82550; 83615; 83690; 83735; 84484; 84703; 85025; 85610; 85730; 87070; 87430; 87804; 93005; 96374; 99284; J1885